=== PATIENT | male | born 1945 | race American Indian/Alaskan Native ===

== ENCOUNTER → 2018-08-12 | Outpatient (CLI) | payer OTHER ==
[~2018-08-12] MED LIST: AMLO5 PO; ASPI81CH PO; CARV3.125 PO; CELE200 PO; CEPH500 PO; ERGO400 PO; FINA5 PO; HYDACE5 PO; LISI20 PO; OMEPRAZOLE MAGN20 MG PO; TAMS.4ER PO
== END | disposition home or self-care (01) ==
LOC: LAB SHORT 12:16 → PLD 12:16
DX: D22.5 Melanocytic nevi of trunk (principal)
CPT/HCPCS: 88305

== ENCOUNTER 2018-08-30 23:01 | Inpatient (IN) | payer OTHER ==
[~2018-08-30] VITALS: Ht 162.6 cm; Wt 87.3 kg
[~2018-08-30 23:01] MED LIST changes: -AMLO5 PO; -CARV3.125 PO; -CELE200 PO; -ERGO400 PO; -FINA5 PO; -TAMS.4ER PO
[2018-08-31 00:48] LABS: BASOPHILS ABSOLUTE AUTO 0.08 K/mm3 (0.00-0.23); BASOPHILS PERCENT AUTO 1 % (0-2); EOSINOPHILS ABSOLUTE AUTO 0.04 K/mm3 (0.00-0.68); EOSINOPHILS PERCENT AUTO 0 % (0-6); Hemoglobin 19.2 g/dL (13.5-17.5); IMMATURE GRAN ABSOLUTE AUTO 0.07 K/mm3 (0.00-0.10); IMMATURE GRAN PERCENT AUTO 0 % (0-1); LYMPHOCYTES ABSOLUTE AUTO 0.41 K/mm3 (0.84-5.20); LYMPHOCYTES PERCENT AUTO 2 % (21-46); MONOCYTES ABSOLUTE AUTO 0.67 K/mm3 (0.16-1.47); MONOCYTES PERCENT AUTO 4 % (4-13); Mean Corpuscular HGB 32.1 pg (26.0-34.0); Mean Corpuscular HGB Conc 33.9 g/dL (31.5-36.5); Mean Corpuscular Volume 95 fL (80-100); Mean Platelet Volume 10.6 fL (9.1-12.4); NEUTROPHILS ABSOLUTE AUTO 15.92 K/mm3 (1.96-9.15); NEUTROPHILS PERCENT AUTO 93 % (41-73); Platelet Count 235 K/mm3 (150-400); RDW Coefficient Variation 12.2 % (11.7-14.2); Red Blood Cell Count 5.98 M/mm3 (4.30-5.90); White Blood Cell Count 17.19 K/mm3 (4.00-11.30)
[2018-08-31 00:49] LABS: Hematocrit 56.7 % (37.0-53.0)
[2018-08-31 01:12] LABS: Albumin, Blood 4.6 g/dL (3.4-5.0); Albumin/Globulin Ratio 1.1 (0.8-1.8); Bilirubin, Total 1.1 mg/dL (0.1-1.0); Bun/Creatinine Ratio 19.7 (12.0-20.0); Calcium, Blood 9.4 mg/dL (8.5-10.1); Creatinine, Blood 1.27 mg/dL (0.60-1.20); Globulin, Blood 4.3 g/dL (2.2-4.0); Potassium, Blood 5.8 mmol/L (3.5-5.5); Total Protein, Blood 8.9 g/dL (6.4-8.2)
[2018-08-31 02:31] LABS: Adenovirus F 40/41 Not Detected (NOT DETECT); Astrovirus Not Detected (NOT DETECT); Campylobacter Sp Not Detected (NOT DETECT); Cryptosporidium Not Detected (NOT DETECT); Cyclospora Cayetanensis Not Detected (NOT DETECT); E. Coli O157 Not Detected (NOT DETECT); Entamoeba Histolytica Not Detected (NOT DETECT); Enteroaggregative E. coli-EAEC Not Detected (NOT DETECT); Enteropathogenic E. coli-EPEC Not Detected (NOT DETECT); Enterotoxigenic E. coli-ETEC Not Detected (NOT DETECT); Giardia Lamblia Not Detected (NOT DETECT); Plesiomonas Shigelloides Not Detected (NOT DETECT); Rotavirus A Not Detected (NOT DETECT); Salmonella Sp Not Detected (NOT DETECT); Sapovirus Not Detected (NOT DETECT); Shiga Toxin-prod E. coli-STEC Not Detected (NOT DETECT); Shigella/Enteroin E. coli-EIEC Not Detected (NOT DETECT); Vibrio Cholerae Not Detected (NOT DETECT); Vibrio Sp Not Detected (NOT DETECT); Yersinia Enterocolitica Not Detected (NOT DETECT)
[2018-08-31 04:00] LABS: Norovirus GI/GII Detected (NOT DETECT)
[2018-08-31 04:30] LABS: Calcium, Ionized (POC) 1.07 mmol/L (1.10-1.46); Chloride (POC) 108 mmol/L (98-108); Glucose (ISTAT POC) 174 mg/dL (70-99); Hemoglobin (POC) 18.4 g/dL (13.5-17.5); Potassium (POC) 6.2 mmol/L (3.5-5.5); Sodium (POC) 143 mmol/L (135-148); Total CO2 (POC) 20 mmol/L (21-32)
[2018-08-31 06:32] LABS: Anion Gap 9 mmol/L (6-16); Blood Urea Nitrogen 22 mg/dL (8-24); Bun/Creatinine Ratio 20.4 (12.0-20.0); CO2, Blood 21 mmol/L (21-32); Calcium, Blood 8.3 mg/dL (8.5-10.1); Chloride, Blood 111 mmol/L (98-108); Creatinine, Blood 1.08 mg/dL (0.60-1.20); Glomerular Filtration Rate >60 (60-); Glucose, Blood 145 mg/dL (70-99); Sodium, Blood 141 mmol/L (136-145)
[2018-08-31 06:34] LABS: Potassium, Blood 3.8 mmol/L (3.5-5.5)
[2018-08-31] MEDS ORDERED: CELE200 PO (14:24)
[2018-08-31] MEDS ORDERED: ERGO400 PO (14:25)
[2018-08-31] MEDS ORDERED: CARV3.125 PO (14:25)
[2018-08-31] MEDS ORDERED: TAMS.4ER PO (14:26)
[2018-08-31] MEDS ORDERED: FINA5 PO (14:26)
--- NOTE | 2018-08-31 17:12 | NUR ---
SHIFT SUMMARY. ER ADMISSION TODAY. PT WITH POSITIVE NOROVIRUS IN CONTACT ISOLATION. PT REPORTS 3 LIQUID STOOLS PRIOR TO ARRIVING TO MEDICAL FLOOR, PT WITH 1 LIQUID YELLOW STOOL THIS AFTERNOON. PT DENIES N/V, POOR APPETITE THOUGH. PT DENIES PAIN. PT CONTINUES WITH GENTLE IV HYDRATION. MED REC COMPLETED AND UPDATED, DR. SIDHU CALLED AND MADE AWARE THAT HOME MED REC HAS BEEN UPDATED. PT HAS SLEPT MOST OF SHIFT.
[2018-09-01 04:37] LABS: BASOPHILS ABSOLUTE AUTO 0.03 K/mm3 (0.00-0.23); BASOPHILS PERCENT AUTO 0 % (0-2); EOSINOPHILS ABSOLUTE AUTO 0.09 K/mm3 (0.00-0.68); EOSINOPHILS PERCENT AUTO 1 % (0-6); Hematocrit 46.1 % (37.0-53.0); Hemoglobin 15.5 g/dL (13.5-17.5); IMMATURE GRAN ABSOLUTE AUTO 0.02 K/mm3 (0.00-0.10); IMMATURE GRAN PERCENT AUTO 0 % (0-1); LYMPHOCYTES ABSOLUTE AUTO 1.32 K/mm3 (0.84-5.20); LYMPHOCYTES PERCENT AUTO 17 % (21-46); MONOCYTES ABSOLUTE AUTO 0.54 K/mm3 (0.16-1.47); MONOCYTES PERCENT AUTO 7 % (4-13); Mean Corpuscular HGB Conc 33.6 g/dL (31.5-36.5); Mean Corpuscular Volume 95 fL (80-100); Mean Platelet Volume 9.9 fL (9.1-12.4); NEUTROPHILS ABSOLUTE AUTO 5.89 K/mm3 (1.96-9.15); NEUTROPHILS PERCENT AUTO 75 % (41-73); Platelet Count 159 K/mm3 (150-400); RDW Coefficient Variation 12.1 % (11.7-14.2); RDW Standard Deviation 42.5 fL (35.1-46.3); Red Blood Cell Count 4.84 M/mm3 (4.30-5.90); White Blood Cell Count 7.89 K/mm3 (4.00-11.30)
--- NOTE | 2018-09-01 04:38 | NUR ---
SHIFT SUMMARY PT ADMITTED FOR SEPSIS. CONTACT ISOLATION FOR NOROVIRUS. FULL CODE. REGULAR DIET. TELE-NSR AT A RATE OF 84 WITH OCCATIONAL PVS PER SUPER[employer]OR [employer]. LRS CONTINUE AT A RATE OF 75 MLS/HR. 20G BOSSMAN TO R FA. 1 PERSON STANDBY ASSIST TO INDEPENDENT WITH TRANSFERS AND AMBULATION DEPENDING ON HOW PT FEELS. MEDS WHOLE WITH WATER. THE PT PRESENTED TO THE ED WITH C/O PERSISTENT DIARRHEA AND COMITING. THE PATIENTS WAS WAS CURRENTLY BEING TREATED FOR C-DIFF. PT WAS INITIALLY ADMITTED WITH ORDERS TO TREAT C-DIFF. HOWEVER, PT TESTED NEGATIVE FOR C-DIFF BUT POSITIVE FOR THE NORVIRUS. THE PT STATED THAT HE IS FEELING MUCH BETTER. THE PT HAS APPEARS TO SLEEP COMFORTABLY MOST OF THE NIGHT WITH NO APPARENT SIGNS OF ACUTE DISTRESS. ABLE TO MAKE NEEDS KNOWN AND CALL LIGHT IN REACH. PT IS A POSSIBLE DISCHARGE TODAY.
[2018-09-01 04:51] LABS: Albumin, Blood 3.2 g/dL (3.4-5.0); Anion Gap 6 mmol/L (6-16); Blood Urea Nitrogen 19 mg/dL (8-24); Bun/Creatinine Ratio 18.1 (12.0-20.0); CO2, Blood 25 mmol/L (21-32); Calcium, Blood 7.8 mg/dL (8.5-10.1); Chloride, Blood 109 mmol/L (98-108); Creatinine, Blood 1.05 mg/dL (0.60-1.20); Glomerular Filtration Rate >60 (60-); Glucose, Blood 100 mg/dL (70-99); Phosphorus, Blood 2.1 mg/dL (2.5-4.9); Potassium, Blood 3.4 mmol/L (3.5-5.5); Sodium, Blood 140 mmol/L (136-145)
[2018-09-01] MEDS ORDERED: AMLO5 PO (09:40)
--- NOTE | 2018-09-01 13:33 | NUR ---
SHIFT SUMMARY/DC PT HAS HAD NO ACUTE CHANGES THIS SHIFT, NO COMPLAINTS OF ANY KIND. REVIEWED DC INSTRUCTIONS W/PT WHO VERBALIZED UNDERSTANDING. PT WAS TRANSPORTED VIA W/C TO DC IN PRIVATE VEHICLE @ 1330.
== END 2018-09-01 13:19 | disposition home or self-care (01) | DRG 872 ==
LOC: ER 23:01 → MEDS 08-31 04:06 → ERHOLD 08-31 04:06 → MEDS 08-31 13:04 → ENPENDDIS 09-01 09:37 → MEDS 09-01 13:19
PROVIDERS: Emergency Medicine; Family Medicine; ADMIT Internal Medicine
DX: A41.9 Sepsis, unspecified organism (principal); N17.9 Acute kidney failure, unspecified; A08.11 Acute gastroenteropathy due to Norwalk agent; R65.20 Severe sepsis without septic shock; K21.9 Gastro-esophageal reflux disease without esophagitis; I10 Essential (primary) hypertension; E66.9 Obesity, unspecified; E87.6 Hypokalemia; E83.39 Other disorders of phosphorus metabolism; E87.5 Hyperkalemia; E86.0 Dehydration; Z85.46 Personal history of malignant neoplasm of prostate; Z88.1 Allergy status to other antibiotic agents; Z79.82 Long term (current) use of aspirin; Z79.899 Other long term (current) drug therapy
CPT/HCPCS: 36415; 74176; 80047; 80048; 80053; 80069; 83605; 83690; 85014; 85025; 87040; 87507; 96361; 96374; 96375; 99285-25; J1815; J1940; J2405; J3010; J3370; J7030; J7120

== ENCOUNTER 2019-05-19 23:07 | Day surgery (SDC) | payer OTHER ==
[~2019-05-19] VITALS: Ht 165.1 cm; Wt 79.8 kg
[~2019-05-19 23:07] MED LIST changes: +AMLO5 PO; +CARV3.125 PO; +CELE200 PO; +ERGO400 PO; +FINA5 PO; +TAMS.4ER PO
[2019-05-19 23:34] LABS: BASOPHILS ABSOLUTE AUTO 0.15 K/mm3 (0.00-0.23); BASOPHILS PERCENT AUTO 1 % (0-2); EOSINOPHILS ABSOLUTE AUTO 0.24 K/mm3 (0.00-0.68); EOSINOPHILS PERCENT AUTO 2 % (0-6); Hemoglobin 9.1 g/dL (13.5-17.5); Mean Corpuscular HGB 22.1 pg (26.0-34.0); Mean Corpuscular HGB Conc 28.4 g/dL (31.5-36.5); Mean Corpuscular Volume 78 fL (80-100); Mean Platelet Volume 8.9 fL (9.1-12.4); Platelet Count 700 K/mm3 (150-400); RDW Coefficient Variation 18.7 % (11.7-14.2); RDW Standard Deviation 52.3 fL (35.1-46.3); Red Blood Cell Count 4.12 M/mm3 (4.30-5.90); White Blood Cell Count 10.84 K/mm3 (4.00-11.30)
[2019-05-19 23:36] LABS: IMMATURE GRAN ABSOLUTE AUTO 0.02 K/mm3 (0.00-0.10); IMMATURE GRAN PERCENT AUTO 0 % (0-1); LYMPHOCYTES ABSOLUTE AUTO 5.07 K/mm3 (0.84-5.20); LYMPHOCYTES PERCENT AUTO 47 % (21-46); MONOCYTES ABSOLUTE AUTO 0.98 K/mm3 (0.16-1.47); MONOCYTES PERCENT AUTO 9 % (4-13); NEUTROPHILS ABSOLUTE AUTO 4.38 K/mm3 (1.96-9.15); NEUTROPHILS PERCENT AUTO 40 % (41-73)
[2019-05-19 23:55] LABS: Alanine Aminotransfer (ALT/SGP 22 U/L (12-78); Albumin, Blood 3.4 g/dL (3.4-5.0); Albumin/Globulin Ratio 0.8 (0.8-1.8); Alk Phos 102 U/L (50-136); Anion Gap 5 mmol/L (6-16); Aspartate Aminotrans (AST/SGOT 25 U/L (12-37); Bilirubin, Total 0.2 mg/dL (0.1-1.0); Blood Urea Nitrogen 16 mg/dL (8-24); Bun/Creatinine Ratio 19.5 (12.0-20.0); CO2, Blood 28 mmol/L (21-32); Calcium, Blood 8.7 mg/dL (8.5-10.1); Chloride, Blood 109 mmol/L (98-108); Creatinine, Blood 0.82 mg/dL (0.60-1.20); Globulin, Blood 4.5 g/dL (2.2-4.0); Glomerular Filtration Rate >60 (60-); Glucose, Blood 141 mg/dL (70-99); Potassium, Blood 3.7 mmol/L (3.5-5.5); Sodium, Blood 142 mmol/L (136-145); Total Protein, Blood 7.9 g/dL (6.4-8.2); Troponin I 0.141 ng/mL (0.000-0.040)
[2019-05-20] MEDS ORDERED: Florastor250 MG (01:20)
[2019-05-20] MEDS ORDERED: Vitamin D400 UNI2 PO (01:20)
--- NOTE | 2019-05-20 04:54 | NUR ---
Pt alert and oriented x4. Vital signs stable. Placed on supplemental oxygen at 2L per NC while asleep. Educated and encourage patient to use IS. Complaints of moderate pain, medicated as ordered. Voiding freely. abdominal binder inplace. Given antibiotics and IVF infusing. Tolerating clear liquids.
--- NOTE | 2019-05-20 05:04 | NUR ---
Pt alert and oriented x4. Vital signs stable. Placed on telemetry monitoring; sinus kasey. nitropaste removed. No complaints of chestpain or SOB. Voiding freely. 20g IV to left forearm flushes with ease. Echocardiogram ordered for a.m. Trending trops. Using CPAP HS.
--- NOTE | 2019-05-20 07:56 | NUR ---
cardio by to see pt npo
[2019-05-20 08:01] LABS: Hematocrit 31.1 % (37.0-53.0); Hemoglobin 8.8 g/dL (13.5-17.5); Mean Corpuscular HGB 21.8 pg (26.0-34.0); Mean Corpuscular HGB Conc 28.3 g/dL (31.5-36.5); Mean Corpuscular Volume 77 fL (80-100); Platelet Count 706 K/mm3 (150-400); RDW Coefficient Variation 18.5 % (11.7-14.2); Red Blood Cell Count 4.03 M/mm3 (4.30-5.90); White Blood Cell Count 9.32 K/mm3 (4.00-11.30)
[2019-05-20 08:02] LABS: Hematocrit 31.1 % (37.0-53.0); Hemoglobin 8.8 g/dL (13.5-17.5)
[2019-05-20 08:21] LABS: Alanine Aminotransfer (ALT/SGP 25 U/L (12-78); Albumin, Blood 3.2 g/dL (3.4-5.0); Albumin/Globulin Ratio 0.8 (0.8-1.8); Alk Phos 83 U/L (50-136); Anion Gap 6 mmol/L (6-16); Aspartate Aminotrans (AST/SGOT 30 U/L (12-37); Bilirubin, Total 0.4 mg/dL (0.1-1.0); Blood Urea Nitrogen 17 mg/dL (8-24); Bun/Creatinine Ratio 21.5 (12.0-20.0); CO2, Blood 27 mmol/L (21-32); Calcium, Blood 8.5 mg/dL (8.5-10.1); Chloride, Blood 110 mmol/L (98-108); Creatinine, Blood 0.79 mg/dL (0.60-1.20); Globulin, Blood 4.1 g/dL (2.2-4.0); Glomerular Filtration Rate >60 (60-); Glucose, Blood 104 mg/dL (70-99); Potassium, Blood 3.8 mmol/L (3.5-5.5); Sodium, Blood 143 mmol/L (136-145); Total Protein, Blood 7.3 g/dL (6.4-8.2)
--- NOTE | 2019-05-20 08:35 | NUR ---
CRITICAL TROP 2.440 SR MAUREEN NOTIFIED
[2019-05-20 08:41] LABS: Troponin I 2.44 ng/mL (0.000-0.040)
--- NOTE | 2019-05-20 08:50 | NUR ---
ECHO AT BEDSIDE
--- NOTE | 2019-05-20 11:00 | NUR ---
PT TRANSPORTED [facility]
--- NOTE | 2019-05-20 12:30 | NUR ---
ASSUMED CARE: REPORT RECIEVED FROM [facility] RN. PT ARRIVED TO PCU 4 VIA BED ACCOMPANIED BY [facility]ART [facility] STAFF. REPORT RECIEVED FROM DESTINEE FIGUEREDO. PT HAS DIFUSE CAD, NO INTERVENTIONS IN THE CARDIAC CATH. PT HAS RIGHT RADIAL SITE WITH TR BAND AND ARM BOARD IN PLACE. 12CC IN THE TR BAND PER REPORT. NO OOZING NOTED. PT DENIES N/T. CAP REFILL BRISK. VSS. BIOX WNL ON RA. PT DENIES PAIN AT THIS TIME. AT BEDSIDE. PT DENIES FURTHER NEEDS AT THIS TIME. CALL LIGHT IN REACH. WILL CONTINUE TO MONTIOR.
--- NOTE | 2019-05-20 14:00 | NUR ---
TR BAND HAS BEEN STABLE. 2CC REMOVED FROM HOSEA FIGUEREDO. SITE REMAINS STABLE. PT AND DENY NEEDS. CALL LIGHT IN REACH. WILL CONTINUE TO MONITOR.
--- NOTE | 2019-05-20 14:32 | NUR ---
1430-BEGAN REMOVING AIR FROM TRB BALLOON. SITE REMAINS CLEAR, NO BLEEDING OR HEMATOMA NOTED, GOOD CAP REFILL TO FINGERS.
--- NOTE | 2019-05-20 15:30 | NUR ---
VSS. PT IS RESTING COMFORABLY IN BED WITH EYES CLOSED RESP E/U. CALL LIGHT IN REACH, WILL CONTINUE TO MONITOR.
[2019-05-20 16:11] LABS: Troponin I 2.62 ng/mL (0.000-0.040)
--- NOTE | 2019-05-20 19:28 | NUR ---
PT HAS DONE WELL POST CATH. RIGHT RADIAL SITE IS FULLY RECOVERED. NO OOZING PRESENT. CLEAR OP SITE PLACED OVER SITE WITH ARM BOARD IN PLACE. PT HAS BEEN EDUCATED RE: RADIAL SITE INSTRUCTIONS. VSS. NO ACUTE CHANGES THIS SHIFT. REPORT GIVEN TO HARDIK TREJO RN.
[2019-05-20 19:38] LABS: Hematocrit 31.9 % (37.0-53.0); Hemoglobin 9.1 g/dL (13.5-17.5)
--- NOTE | 2019-05-20 20:00 | NUR ---
CARE ASSUMPTION PT A&O X4. VSS. R RADIAL ACCESS SITE WNL, NO BLEEDING, NO HEMATOMA. OPSITE DRESSING COVERING SITE. ARM BOARD IMMOBILIZER IN PLACE. WILL CONTINUE TO MONITOR AND PROVIDE CARE.
[2019-05-21 04:02] LABS: BASOPHILS ABSOLUTE AUTO 0.13 K/mm3 (0.00-0.23); BASOPHILS PERCENT AUTO 2 % (0-2); EOSINOPHILS ABSOLUTE AUTO 0.26 K/mm3 (0.00-0.68); EOSINOPHILS PERCENT AUTO 3 % (0-6); Hematocrit 32.6 % (37.0-53.0); Hemoglobin 9.1 g/dL (13.5-17.5); IMMATURE GRAN ABSOLUTE AUTO 0.03 K/mm3 (0.00-0.10); IMMATURE GRAN PERCENT AUTO 0 % (0-1); LYMPHOCYTES ABSOLUTE AUTO 3.83 K/mm3 (0.84-5.20); LYMPHOCYTES PERCENT AUTO 45 % (21-46); MONOCYTES ABSOLUTE AUTO 0.65 K/mm3 (0.16-1.47); MONOCYTES PERCENT AUTO 8 % (4-13); Mean Corpuscular HGB Conc 27.9 g/dL (31.5-36.5); Mean Corpuscular Volume 79 fL (80-100); Mean Platelet Volume 9.1 fL (9.1-12.4); NEUTROPHILS ABSOLUTE AUTO 3.55 K/mm3 (1.96-9.15); NEUTROPHILS PERCENT AUTO 42 % (41-73); Platelet Count 648 K/mm3 (150-400); RDW Coefficient Variation 18.7 % (11.7-14.2); RDW Standard Deviation 53.4 fL (35.1-46.3); Red Blood Cell Count 4.14 M/mm3 (4.30-5.90); White Blood Cell Count 8.45 K/mm3 (4.00-11.30)
[2019-05-21 04:29] LABS: Percent Saturation 6.8 % (20.0-50.0)
--- NOTE | 2019-05-21 04:37 | NUR ---
SHIFT SUMMARY PT A&O X4. VSS. NO EVENTS/CHANGES OVERNIGHT. PT SLEEPING MAJORITY OF NIGHT WEARING CPAP. WILL CONTINUE TO MONITOR AND PROVIDE CARE UNTIL REPORT OFF TO DAY SHIFT RN.
[2019-05-21 04:58] LABS: Anion Gap 9 mmol/L (6-16); Blood Urea Nitrogen 18 mg/dL (8-24); Bun/Creatinine Ratio 21.5 (12.0-20.0); CO2, Blood 23 mmol/L (21-32); Calcium, Blood 8.5 mg/dL (8.5-10.1); Chloride, Blood 108 mmol/L (98-108); Creatinine, Blood 0.84 mg/dL (0.60-1.20); Glomerular Filtration Rate >60 (60-); Glucose, Blood 110 mg/dL (70-99); Phosphorus, Blood 3.7 mg/dL (2.5-4.9); Potassium, Blood 4.9 mmol/L (3.5-5.5); Sodium, Blood 140 mmol/L (136-145)
--- NOTE | 2019-05-21 07:45 | NUR ---
INITIAL ASSESSMENT: PATIENT IS RESTING COMFORTABLY IN BED SITTING UP IN BED WATCHING TV GETTING READY TO EAT BREAKFAST. PT IS ALERT AND ORIENTED. PT DENIES CHEST PAIN OR SOB. HRR, SR WITH 1ST DEGREE BLOCK PER TELEMETRY. HEART RATE RUNNING IN THE LOW 60S. LS CTA, BIOX WNL ON RA. BT+. PPP. NO EDEMA NOTED. PT HAS RIGHT RADIAL SITE WITH OPSITE DRESSING, CDI NO OOZING NOTED. ARM BOARD IN PLACE. VSS. PT HAS SLIGHT LEFT FACIAL DROOP. 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 PT DENIES NEEDS AT THIS TIME. CALL LIGHT IN REACH, WILL CONTINUE TO MOTNITOR.
--- NOTE | 2019-05-21 08:30 | NUR ---
AM MEDS GIVEN WITHOUT DIFFICULTY WITH SIP OF WATER. PT DENIES OTHER NEEDS AT THIS TIME, CALL LIGHT IN REACH.
--- NOTE | 2019-05-21 10:00 | NUR ---
DR. REDDY CAME BY TO SEE THE PATIENT. PT HAS BEEN CLEARED BY CARDIOLOGY. CALL PLACED TO TO LET HER KNOW PT HAS BEEN CLEARED BY CARDIOLOGY AND THE PATIENT WOULD LIKE TO GO HOME. DR. SIDHU STATES SHE WILL BE BY SOON A POSSIBLE TO DISCHARGE THE PATIENT.
[2019-05-21] MEDS ORDERED: ATOR40TA PO (12:41)
[2019-05-21] MEDS ORDERED: CLOP75 PO (12:42)
[2019-05-21] MEDS ORDERED: Prinivil10 MG PO (12:44)
[2019-05-21] MEDS ORDERED: METO25 PO (12:45)
[2019-05-21] MEDS ORDERED: NITR.4SL SL (12:46)
[2019-05-21] MEDS ORDERED: PANT40 PO (12:47)
--- NOTE | 2019-05-21 13:35 | NUR ---
DR. SIDHU HAS BEEN TO SEE THE PATIENT. DC ORDERS ARE COMPLETE. DISCUSSED PTS NEW MEDICATIONS WITH PT, , DAUGHTER AND GRANDDAUGHTER. SCRIPTS FAXED TO [facility]. PT AND FAMILY VERBALIZE UNDERSTANDING OF DISCHARGE INSTRUCTIONS. PT HOME WITH FAMILY VIA WC.
== END 2019-05-21 13:33 | disposition home or self-care (01) ==
LOC: ER 23:07 → ERHOLD 23:08 → SURS 05-20 02:40 → ER 05-20 02:40 → ERHOLD 05-20 02:40 → SURS 05-20 02:40 → ERHOLD 05-20 02:44 → ER 05-20 02:44 → ERHOLD 05-20 03:22 → SURS 05-20 03:22 → MHTC 05-20 03:30 → ORSCMMR 05-20 03:30 → SURS 05-20 05:37 → PCU 05-20 12:24 → ORSCMMR 05-21 13:33 → PCU 05-21 13:33
PROVIDERS: Emergency Medicine; Family Medicine; Internal Medicine
DX: I21.4 Non-ST elevation (NSTEMI) myocardial infarction (principal); I11.9 Hypertensive heart disease without heart failure; K21.9 Gastro-esophageal reflux disease without esophagitis; D50.9 Iron deficiency anemia, unspecified; G47.30 Sleep apnea, unspecified; Z86.69 Personal history of other diseases of the nervous system and sense organs; Z85.46 Personal history of malignant neoplasm of prostate; Z85.07 Personal history of malignant neoplasm of pancreas; Z79.82 Long term (current) use of aspirin; Z79.899 Other long term (current) drug therapy; Z79.02 Long term (current) use of antithrombotics/antiplatelets
CPT/HCPCS: 36415; 71046; 80053; 80069; 82550; 82607; 82728; 82746; 83540; 83550; 84484; 85014; 85018; 85025; 85027; 93005; 93010; 93306; 93458; 94762; 96372; 96374; 99152; 99153; 99285-25; A9270; C1769; C1894; G0378; J1644; J1650; J2250; J3010; J7030; Q9967

== ENCOUNTER 2021-02-16 11:38 | Emergency (ER) | payer OTHER ==
[~2021-02-16] VITALS: Ht 165.1 cm; Wt 76.7 kg
[~2021-02-16 11:38] MED LIST changes: +ATOR40TA PO; +CLOP75 PO; +Florastor250 MG; +METO25 PO; +NITR.4SL SL; +PANT40 PO; +Prinivil10 MG PO; +Vitamin D400 UNI2 PO
[2021-02-16] MEDS ORDERED: CEPH500 PO (14:57)
== END 2021-02-16 15:15 | disposition home or self-care (01) ==
LOC: ER 11:38
DX: S61.111A Laceration without foreign body of right thumb with damage to nail, initial encounter (principal); Z88.0 Allergy status to penicillin; Z79.899 Other long term (current) drug therapy; W31.2XXA Contact with powered woodworking and forming machines, initial encounter
CPT/HCPCS: 12002; 73140; 90471; 90714; 99282-25

== ENCOUNTER 2022-04-05 09:14 | Emergency (ER) | payer OTHER ==
[~2022-04-05] VITALS: Ht 157.5 cm; Wt 78.5 kg
== END 2022-04-05 11:22 | disposition home or self-care (01) ==
LOC: ER 09:14
DX: U07.1 COVID-19 (principal); I10 Essential (primary) hypertension; K21.9 Gastro-esophageal reflux disease without esophagitis; Z88.1 Allergy status to other antibiotic agents; Z79.82 Long term (current) use of aspirin; Z79.899 Other long term (current) drug therapy
CPT/HCPCS: 99283-25; M0222